=== PATIENT | female | born 1955 | race Caucasian/White ===

== ENCOUNTER 2016-06-24 15:27 | Emergency (ER) | payer OTHER ==
[~2016-06-24] VITALS: Ht 160 cm; Wt 83.9 kg
[2016-06-24 15:31] VITALS: BP 137/84
[2016-06-24] MEDS ORDERED: BUPROPION XL150 MG PO (16:26)
--- NOTE | 2016-06-24 16:26 | ED GI/GU/ABDOMINAL COMPLAINT ---
History of Present Illness General Chief Complaint: Female Urogenital Problems Stated Complaint: "I HAVE TO BE CATHETERIZED I CANT PEE" Source: patient, old records Exam Limitations: no limitations Vital Signs & Intake/Output Vital Signs & Intake/Output Vital Signs Date Time Temp Pulse Resp B/P Pulse O2 O2 Flow FiO2 Ox Delivery Rate 06/24 1531 967.1 105 16 137/84 96 Room Air Allergies Coded Allergies: NO KNOWN ALLERGIES (11/24/15) NKA PER ANTIBIOTIC ORDER SHEET OF 04/20/13 - [facility] Reconcile Medications Alprazolam 0.5 MG TABLET 1 TAB PO PRN ANXIETY (Reported) Amlodipine Besylate 10 MG TABLET 1 TAB PO DAILY BP (Reported) Atorvastatin Calcium 10 MG TABLET 1 TAB PO DAILY CHOLESTEROL (Reported) Bupropion HCl (Bupropion XL) 150 MG TAB.ER.24H 1 TAB PO QAM MENTAL HEALTH ( Reported) Tamsulosin HCl 0.4 MG CAP.ER.24H 1 CAP PO DAILY URINATION (Reported) Venlafaxine HCl (Venlafaxine HCl ER) 37.5 MG CAP.ER.24H 1 CAP PO DAILY MENTAL HEALTH (Reported) Triage Note: PT STATES SHE NEEDS TO BE STRAIGHT CATHED. PT STATES SHE HASN'T VOIDED SINCE 10AM. PT REPORTS THIS HAS HAPPEND TO HER IN THE PAST AND SHE IS BEING TREATED BY DR. BEDOYA. Triage Nurses Notes Reviewed? yes LMP (ages 10-50): post menopausal ? n Is pt currently ? No Onset: Morning Duration: hour(s):, constant, continues in ED, getting worse Timing: recent history Quality/Severity: fullness Location: suprapubic Radiation: no radiation Activities at Onset: rest Prior Abdominal Problems: similar symptoms Past Sexual History: Unobtainable at this time No Modifying Factors: none Associated Symptoms: abdominal pain HPI: 6 hours prior to admission patient reports voiding and now unable to urinate. She reports urethral dilatation 5 days ago for stricture. She denies fever chills nausea vomiting diarrhea chest pain cough shortness of breath headache dysuria rash bleeding Past History Travel History Traveled to [place] past 21 day No Medical History Any Pertinent Medical History? 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 No Review of Systems Review of Systems Constitutional: Reports: no symptoms. EENTM: Reports: no symptoms. Respiratory: Reports: no symptoms. Cardiovascular: Reports: no symptoms. GI: Reports: no symptoms. Genitourinary: Reports: see HPI, pain. Musculoskeletal: Reports: no symptoms. Skin: Reports: no symptoms. Neurological/Psychological: Reports: no symptoms. Hematologic/Endocrine: Reports: no symptoms. Immunologic/Allergic: Reports: no symptoms. All Other Systems: Reviewed and Negative Physical Exam Physical Exam General Appearance: well developed/nourished, alert, awake, anxious, moderate distress, obese Head: atraumatic, normal appearance Eyes: Bilateral: normal appearance, PERRL, EOMI, normal inspection. Ears, Nose, Throat, Mouth: hearing grossly normal, moist mucous membrane Neck: normal inspection, supple, full range of motion, normal alignment Respiratory: normal breath sounds, chest non-tender, no respiratory distress, quiet respiration, lungs clear Cardiovascular: regular rate/rhythm, normal peripheral pulses, norml femoral pulses equa Peripheral Pulses: 4+ carotid (R), 4+ carotid (L) Gastrointestinal: normal bowel sounds, soft, non-tender, no organomegaly Back: normal inspection, normal range of motion Extremities: normal range of motion, no ligament instability Neurologic/Psych: no motor/sensory deficits, awake, alert, oriented x 3, normal gait, normal mood/affect Skin: intact, normal color, warm/dry Core Measures ACS in differential dx? No Severe Sepsis Present: No Septic Shock Present: No Progress Differential Diagnosis: UTI/pyelo, urinary retention (chest) Plan of Care: Orders Procedure Date/time Status Galan, Insertion/Removal/Asses 06/24 1623 Active CULTURE,URINE 06/24 1623 Active Microbiology 06/24 1707 URINE ROUT: Urine Culture - RECD Initial ED EKG: none Departure Departure Time of Disposition: 1637 Disposition: HOME OR SELF CARE Condition: Stable Clinical Impression Primary Impression: Acute urinary retention Referrals: ELKE FUENTES,GENO CLEANING MD,ELENA June (PCP/Family) Departure Forms: Customer Survey General Discharge Information
[2016-06-24] MEDS ORDERED: TAMSULOSIN HCL0.4 M1 PO (16:27)
[2016-06-24] MEDS ORDERED: VENLAFAXINE H37.5 M4 PO (16:28)
[2016-06-24] MEDS ORDERED: ATORVASTATIN CA10 M1 PO (16:28)
[2016-06-24] MEDS ORDERED: AMLODIPINE BESY10 M1 PO (16:28)
[2016-06-24] MEDS ORDERED: ALPRAZOLAM0.5 M4 PO (16:29)
== END 2016-06-24 17:23 ==
LOC: ERH 15:27
DX: R33.9 Retention of urine, unspecified (principal)
CPT/HCPCS: 87086

== ENCOUNTER → 2016-07-06 | Day surgery (SDC) | payer OTHER ==
[~2016-07-06] VITALS: Ht 160 cm; Wt 86.2 kg
[~2016-07-06] MED LIST: ALPRAZOLAM0.5 M4 PO; AMLODIPINE BESY10 M1 PO; ATORVASTATIN CA10 M1 PO; BUPROPION XL150 MG PO; TAMSULOSIN HCL0.4 M1 PO; VENLAFAXINE H37.5 M4 PO
--- NOTE | 2016-07-08 17:59 | RADIOLOGY REPORT ---
EXAMINATION: XR LUMBOSACRAL SPINE CLINICAL INFORMATION: Interstim device placement. OR read back. COMPARISON: None TECHNIQUE: AP and lateral spot images s of the lumbosacral spine were obtained as part of the device placement by Dr. Giraldo. 23.3 seconds fluoroscopy time provided. FINDINGS: Initial AP image demonstrates needles in both S2 foramina. A stimulator lead is subsequently evident within the right S2 foramen. IMPRESSION: Fluoroscopy time provided for right S2 foraminal Interstim device placement
--- NOTE | 2016-07-11 13:53 | Operative Report ---
Operative/Inv Procedure Report Surgery Date: 07/06/16 Name of Procedure: interstim implant, stage 1 and 2 sacral neuromodulation Pre-Operative Diagnosis: urinary retention and frequency Post-Operative Diagnosis: same Estimated Blood Loss: scant Surgeon/Safekeeping Clerk: GENO BEDOYA MD Anesthesia: local monitored anesthesi Implants: interstim lead and battery Complications: none Condition: stable Operative Indication: urinary retention and frequency Operative/Procedure Note Note: 61yo female with a long hx of urinary retention and frequency who has exhausted all therapies prior to interstim. She has had multiple urethral dilations, catheterizations, medicines. She had the interstim percutaneous trial and did very well. She was consented and the r/b/a given and questions answered. She was taken to the operating room and placed on the operating table in a prone position. She was minimally sedated so she could answer regarding where she felt the stimulation. Her back area was prepped with chloraprep and draped in the standard sterile fashion. Flouroscopy was used throughout the procedure to place the interstim lead at S3 foramen after initial landmarks were drawn out. The left side was tested first and then the right. The stimulation was best illicited on the left side so this was left in place. A stab incision was made with the wire in place. The dilator was placed over this. The lead was then placed and tested after it was seen to be in good position AP and laterally. She had good vaginal sensation at all four leads. The tunneler was used to bring the lead out to the created pocket site on her left side. The battery was connected with the hex wrench. It was then placed into the pocket and then tested. It was seen to be in good owrking order. The incision was closed using interrupted 3-0 vicryl sutures then 4-0 monocryl subcutaneous suture. Mastizol was then applied followed by steristrips. Tegaderm and then opsite was applied. She tolerated the procedure well and the sponge and needle count were correct. Findings: good stimulation in the vaginal area with great toe movement and bellow. Discharge Disposition: PACU
== END ==
LOC: STS 02:09
DX: R33.9 Retention of urine, unspecified (principal); R35.0 Frequency of micturition; N35.9 Urethral stricture, unspecified; Z87.442 Personal history of urinary calculi; A60.00 Herpesviral infection of urogenital system, unspecified; E78.2 Mixed hyperlipidemia; I10 Essential (primary) hypertension
CPT/HCPCS: 72100; C1767; C1778; C1787; C1894; J0131; J0690; J2250

== ENCOUNTER 2016-11-25 12:38 | Emergency (ER) | payer OTHER ==
[~2016-11-25] VITALS: Ht 157.5 cm; Wt 86.2 kg
--- NOTE | 2016-11-25 13:27 | ED GI/GU/ABDOMINAL COMPLAINT ---
History of Present Illness General Chief Complaint: Female Urogenital Problems Stated Complaint: UNABLE TO URINATE X 24HRS Source: patient Exam Limitations: no limitations Vital Signs & Intake/Output Vital Signs & Intake/Output Vital Signs Date Time Temp Pulse Resp B/P B/P Pulse O2 O2 Flow FiO2 Mean Ox Delivery Rate 11/25 1429 997.4 102 15 121/67 94 Room Air Room Air 11/25 1257 97.6 106 18 147/86 99 Room Air ED Intake and Output 11/26 0000 11/25 1200 Intake Total 0 Output Total 600 Balance -600 Intake, Oral 0 Output, Urine 600 Patient 190 lb Weight Weight Reported by Patient Measurement Method Allergies Coded Allergies: NO KNOWN ALLERGIES (11/24/15) NKA PER ANTIBIOTIC ORDER SHEET OF 04/20/13 - [facility] Reconcile Medications Alprazolam 0.5 MG TABLET 1 TAB PO PRN ANXIETY (Reported) Amlodipine Besylate 10 MG TABLET 1 TAB PO DAILY BP (Reported) Atorvastatin Calcium 10 MG TABLET 1 TAB PO DAILY CHOLESTEROL (Reported) Bupropion HCl (Bupropion XL) 150 MG TAB.ER.24H 1 TAB PO QAM MENTAL HEALTH ( Reported) Tamsulosin HCl 0.4 MG CAP.ER.24H 1 CAP PO DAILY URINATION (Reported) Venlafaxine HCl (Venlafaxine HCl ER) 37.5 MG CAP.ER.24H 1 CAP PO DAILY MENTAL HEALTH (Reported) Triage Note: PT STATES SHE HAS NOT BEEN ABLE TO URINATE X 24 HOURS. HAS IMPLANTED INTERSIMICON (LEFT BACK) TO HELP WITH URINATION, STATES SHE TRIED TO SELF-CATH BUT WAS UNABLE TO FIND URETHRA. Triage Nurses Notes Reviewed? yes ? N Is pt currently ? No Onset: Gradual Duration: day(s): Timing: recent history Prior Abdominal Problems: similar symptoms HPI: 61-year-old female presents to emergency department complaining of urinary retention. Patient has a history of urinary retention, she sees urologist for this, she has self-catheterization at home however was unable to self cath. Patient states that she has had urinary retention. Past 3 days however she has had some "trickling" of urine however no full stream. Patient states there was a unusual odor to her urine however denies dysuria, hematuria. She does have some suprapubic discomfort. She denies fevers, chills, changes in bowel movements, discharge, back pain. (ALE GARCIA PA-C) Past History Travel History Traveled to [place] past 21 day No Medical History Any Pertinent Medical History? 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 No (ALE GARCIA PA-C) Review of Systems Review of Systems Constitutional: Reports: no symptoms. EENTM: Reports: no symptoms. Respiratory: Reports: no symptoms. Cardiovascular: Reports: no symptoms. GI: Reports: no symptoms. Genitourinary: Reports: see HPI. Musculoskeletal: Reports: no symptoms. Skin: Reports: no symptoms. Neurological/Psychological: Reports: no symptoms. Hematologic/Endocrine: Reports: no symptoms. Immunologic/Allergic: Reports: no symptoms. All Other Systems: Reviewed and Negative (ALE GARCIA PA-C) Physical Exam Physical Exam General Appearance: well developed/nourished, no apparent distress, alert Head: atraumatic, normal appearance Eyes: Bilateral: normal appearance, EOMI. Ears, Nose, Throat, Mouth: hearing grossly normal Neck: normal inspection, supple, full range of motion Respiratory: normal breath sounds, no respiratory distress, lungs clear Cardiovascular: regular rate/rhythm Gastrointestinal: normal bowel sounds, soft, suprapubic tenderness Back: normal inspection, normal range of motion, no CVA tenderness Extremities: normal range of motion Neurologic/Psych: awake, alert, oriented x 3 Skin: intact, normal color Core Measures ACS in differential dx? No Severe Sepsis Present: No Septic Shock Present: No (ALE GARCIA PA-C) Progress Differential Diagnosis: bowel obstruction, kidney stone, UTI/pyelo, bladder malignancy Plan of Care: Patient has history of urinary retention for which she sees Dr. Giraldo. She was last evaluated by Dr. Giraldo 2 weeks ago at which time she had no urinary tract infection. Her next appointment is scheduled for tomorrow. Patient was given instructions regarding self-catheterization. Straight cath performed with 600 mL yellow urine. Following straight cath patient experienced immediate relief of her discomfort. Upon second evaluation following straight cath patient appears well, she is in no distress, nontoxic appearing. The patient will follow up as scheduled with her urologist, she will return if any worsening symptoms. The patient is in agreement with the plan of care. Initial ED EKG: none (ALE GARCIA PA-C) Departure Departure Disposition: HOME OR SELF CARE Condition: Stable Clinical Impression Primary Impression: Urinary retention Referrals: HERMILA FUENTES,ELENA June (PCP/Family) Additional Instructions: Keep your scheduled appointment with Dr. Giraldo tomorrow, inform her of your visit here and any symptoms. Return with any worsening symptoms or concerns. Watch for signs of infection, fevers, chills, hematuria, burning with urinating, discharge. Departure Forms: Customer Survey General Discharge Information (ALE GARCIA PA-C) PA/CHIEF OF PARTY Co-Sign Statement Statement: ED Attending supervision documentation- [x] I saw and evaluated the patient. I have also reviewed all the pertinent lab results and diagnostic results. I agree with the findings and the plan of care as documented in the PA's/CHIEF OF PARTY's documentation. [] I have reviewed the ED Record and agree with the PA's/CHIEF OF PARTY's documentation. [] Additions or exceptions (if any) to the PAs/CHIEF OF PARTY's note and plan are summarized below: [] (VIJAYA VILLASENOR DO)
[2016-11-25 14:29] VITALS: BP 121/67
== END 2016-11-25 14:30 ==
LOC: ERH 12:38
DX: R33.9 Retention of urine, unspecified (principal)